=== PATIENT | male | born 2000 | race Caucasian/White ===

== ENCOUNTER 2023-03-03 14:23 | Emergency (ER) | payer OTHER, BC ==
[2023-03-03] MEDS: Lidocaine 1% 10 ML MDV INJECT ONE (14:50)
[2023-03-03] MEDS: Diphtheria,Pertussis(Acell),Tetanus Vaccine 0.5 ML Syringe IM ONE (14:50)
== END 2023-03-03 15:08 | disposition home or self-care (01) ==
LOC: VM.ED 14:23
DX: S61.212A Laceration without foreign body of right middle finger without damage to nail, initial encounter (principal); Z23 Encounter for immunization; F17.210 Nicotine dependence, cigarettes, uncomplicated; W26.0XXA Contact with knife, initial encounter
CPT/HCPCS: 12001; 90471; 90715; 99282-25; J3490